=== PATIENT | male | born 1935 | race Caucasian/White ===

== ENCOUNTER 2016-08-13 15:37 | Inpatient (IN) | payer MEDICARE ==
[~2016-08-13] VITALS: Ht 152.4 cm; Wt 71.4 kg
[~2016-08-13 15:37] MED LIST: ALBU8.5H2 INHALATION; ASPI325T32 PO; ATOR80TA77 PO; CALC-846 PO; CLOP75TA28 PO; GUAI600T86 PO; ISOS60TA2 PO; LEVO50TA6 PO; MEMA28CA PO; METO100T3 PO; MULT-1073 PO; NITR0.4T SL; OMEP20CA11 PO; RIVA20TA PO; VANC125C3 PO
--- NOTE | 2016-08-13 17:00 | NUR ---
Direct Admit Pt comes from [facility] with Rt hip fx in 02/03 pain calling out. No pain medication ordered at this time. paged and aware. Other interventions used to help comfort pt. IV Left hand patent and flushed. 2L NC in use but pt will be weaned off. 94% RA. [place] patent and draining to gravity. [place] tinged and small amount of blood sediment. A&OX2 dementia baseline. Not oriented to year or place. Reoriented well. Family in room. GLF down cement steps. Care continues
[2016-08-13 17:46] VITALS: BP 157/84; PULSE 71; RESP 18; O2SAT 95
[2016-08-13] MEDS ORDERED: Polyethylene Glycol (PEG) 17 Gm Powder PO PRN (18:45)
[2016-08-13] MEDS ORDERED: Ondansetron 2 mg/mL 2 mL Inj IVPUSH PRN (18:45)
[2016-08-13] MEDS ORDERED: Alum-Mag Hydrox-Simeth 30 mL Suspension PO PRN (18:45)
[2016-08-13] MEDS: HYDROmorphone 0.5 mg/0.5 mL iSecure Syringe IVPUSH PRN (19:07)
[2016-08-13 19:26] LABS: Mean Corpuscular Hemoglobin 32.1 pg (27.0-35.0); Mean Corpuscular Volume 96.2 fL (81-100)
[2016-08-13 19:36] VITALS: BP 118/71; PULSE 66; RESP 16; O2SAT 91
[2016-08-13 19:44] LABS: INR 1.08 ratio
[2016-08-13 19:49] LABS: TROPONIN T < 0.010 ug/L (0.0-0.011)
--- NOTE | 2016-08-13 20:15 | PCM.HPMED ---
Subjective Date of Service Aug 13, 2016 Primary Provider: Admitting Physician: Martha Dyson DO Primary Care Physician: Marc Barbosa DO Attending Physician: Martha Dyson DO Allergies Coded Allergies: meperidine (Verified Adverse Reaction, Mild, nausea and vomiting, 04/30/15) PMH Social History Hx Alcohol Use: Yes (a shot of soraya nightly) Hx Substance Use: No Hx Tobacco Use: Yes Smoking Status: Former Smoker Exam Vital Signs Vital Sign - Last Date Time Temp Pulse Resp B/P Pulse Ox O2 Delivery O2 Flow Rate FiO2 08/13/16 19:36 36.5 66 16 118/71 91 Room Air 08/13/16 17:46 2.00 Lab and Diagnostics Result Diagram: 08/13/16191408/13/161914 Assessment & Plan HPI: The patient is an 80-year-old gentleman who has dementia and fell down 7-8 flights of concrete steps. The patient was home by himself and does not remember much of what happened. The patient fell down 7-8 concrete steps and then was found by a neighbor who heard him screaming for help. The patient was then brought to the emergency room at [facility] where he was found to have a right intertrochanteric fracture and then transferred here for surgical repair. Patient is a difficult historian due to his dementia some of the history was pieced together by the patient's who discussed what happened with neighbors. Patient currently only complains of right hip pain and denies any chest pain, shortness of breath, nausea, vomiting, diarrhea. Home medications: Atorvastatin 80 mg by mouth daily Clopidogrel 75 mg daily Isosorbide 30 mg daily Levothyroxine 50 g daily Amantadine 20 mg every PM Metoprolol 100 mg by mouth twice a day Multivitamin Nitroglycerin 0.4 mg sublingual every 5 minutes when necessary chest pain Omeprazole 20 mg daily Allergies: Demerol PMHx: [place] 2 Hyperlipidemia Hypertension Dementia SHx: CABG Pacemaker Appendectomy FHx: Multiple family members with heart disease SocHx: Tobacco history: Patient denies Alcohol use: Patient denies Drug use: Patient denies ROS: A complete review of systems was performed or attempted to be performed. Please see HPI for pertinent positives, all other systems are negatives. Physical Exam: GEN: Patient was awake, alert, responding appropriately to questions HEENT: Pupils equal round and reactive to light, extraocular eye muscles intact , Neck soft supple, trachea midline, right parietal lesion secondary to fall Skin: Multiple bruises status post fall CV: +S1/S2, regular rate and rhythm, no murmurs auscultated Respiratory: CTAB, no wheezes, rales, rhonchi GI: +bowel sounds x4, soft, compressible, nontender to palpation EXT: no clubbing, cyanosis, edema Neuro: Cranial nerves II-XII grossly intact Psych: mood and affect were appropriate Assessment and Plan 80-year-old male with right intratrochanteric fracture Right hip fracture -Consult orthopedics (Dr. Joseph) -Continue anticoagulation medications -Pain control with Dilaudid -Nothing by mouth after midnight Hypertension (currently controlled) -Continue metoprolol 100 mg twice a day -Continue isosorbide 30 mg daily -Continue to monitor Hyperlipidemia (currently controlled) -Continue atorvastatin 80 mg daily Dementia -Continue Namenda FEN GI -Follow up labs in the morning -Continue IV fluids -Nothing by mouth after midnight Disposition: Due to the nature of the patient's condition he will say greater than 2 midnights Time spent Greater than 45 minutes Martha Dyson DO Aug 13, 2016 20:15
[2016-08-13] MEDS: 0.9% Sodium Chloride 1,000 ML IV SCH (20:42)
[2016-08-14] VITALS (7 sets, daily range): BP systolic 128–162; BP diastolic 68–83; PULSE 59–81; RESP 15–20; O2SAT 92–96
--- NOTE | 2016-08-14 00:14 | CONS ---
[address] [address] CONSULTATION REPORT PATIENT: MAREK MONTIEL : 1935 MR#: [id number] ADMIT: 08/13/2016 JOB ID: [id number] DATE OF SERVICE: 08/13/2016 CHIEF COMPLAINT: Right hip pain. HISTORY OF PRESENT ILLNESS: The patient is an 80-year-old male who fell down concrete steps injuring his right hip. He states that he normally ambulates without aids, although he is a somewhat poor historian. He states that he lives at home with his . He had onset of severe acute right hip pain after the fall and was unable to ambulate after that time. PAST MEDICAL HISTORY: Significant for myocardial infarction x2, hyperlipidemia, hypertension, dementia. PAST SURGICAL HISTORY: Coronary artery bypass graft, pacemaker, appendectomy. PHYSICAL EXAMINATION: Blood pressure 118/71, pulse rate 66, respirations 16, temperature 36.5. He is alert and cooperative, in some distress secondary to his right hip. His breathing is unlabored. His right hip has pain with any range of motion. The skin overlying the hip is intact. He is able to move his toes. His foot is warm, pink, and well perfused with dorsalis pedis pulse +2. X-rays demonstrate a right displaced femoral neck fracture. ASSESSMENT: Right displaced femoral neck fracture. PLAN: We discussed treatment options, including operative and nonoperative treatment, and he would like to proceed with a right hip hemiarthroplasty tomorrow, although he is somewhat nervous about the procedure. We discussed the risks, benefits and possible complications of surgery, and answered his questions. We will plan for surgery tomorrow. Recommend holding Plavix until postoperatively, and again, plan for surgery tomorrow for a hip hemiarthroplasty.
[2016-08-14] MEDS: HYDROmorphone 0.5 mg/0.5 mL iSecure Syringe IVPUSH PRN ×5 (00:48→21:19)
--- NOTE | 2016-08-14 05:42 | NUR ---
pain/mentation pt has received IV dilaudid 0.5mg twice this shift for complaints of pain in his hip. pt has baseline dementia, he has been oriented to self place and situation this shift, but does not know the date or time. every time pt wakes up he becomes panicked because he does not remember where his is. pt is easily reoriented and calmed by assuring him that his is home and will be back in the morning. he has been NPO since midnight. he has a bed alarm on for safety and hourly rounding being done. care continues.
[2016-08-14 06:00] LABS: APPEARANCE,URINE SLIGHTLY CLOUDY (CLEAR,HAZY); COLOR,URINE YELLOW (YELLOW); OCCULT BLOOD,URINE LARGE (NEGATIVE); PH,URINE 5.5 (5.0-8.0); UROBILINOGEN,URINE NORMAL (NORMAL)
[2016-08-14 06:10] LABS: Mean Corpuscular Volume 95.9 fL (81-100)
[2016-08-14 06:17] LABS: INR 1.12 ratio
[2016-08-14] MEDS: Pantoprazole 40 mg ER24 Tablet PO SCH (06:44)
[2016-08-14] MEDS: 0.9% Sodium Chloride 1,000 ML IV SCH ×2 (06:50→21:27)
[2016-08-14] MEDS: Isosorbide Mononitrate 30 mg ER24 Tablet PO SCH (08:00)
--- NOTE | 2016-08-14 08:56 | NUR ---
BP medications Paged Dr. Perez and per orders to give ," BP medications and hold others." per orders gave ordered BP medications and held Namenda and Vitamins as ordered. patient aware and agrees. Patient has been NPO for surgery.
--- NOTE | 2016-08-14 09:15 | DRSVH ---
PROCEDURE: X-RAY RIGHT HIP COMPLETE, MINIMUM TWO VIEWS ([id number]) INDICATIONS: HIP PAIN TECHNIQUE: 2 views of the hip were acquired. COMPARISON: [facility], CR, XR HIP 2VW LT, 01/03/2015, 11:06. FINDINGS: Bones: Subcapital right femoral neck fracture is present with mild superior lateral displacement of t he distal fracture component. Soft tissues: No suspicious soft tissue calcifications or masses. Vascular calcifications indicate atherosclerosis. IMPRESSION: Superior laterally displaced right subcapital femoral neck fracture. Dictated by: Gustavo JIN Interpreted: Sarah Lowery MD on 08/14/2016 at 9:13 Transcribed by: MAULIK on 08/14/2016 at 9:14 Approved by: Sarah Lowery M.D. on 08/14/2016 at 9:48
--- NOTE | 2016-08-14 10:46 | NUR ---
Right hip pain objective sign and symptoms of pain, moaning and states," pain in my right leg." per pain assessment patient is unable to use pain scale. patient will be going for surgery today. PRN Dilaudid given as ordered. Spouse at bed side. OR aware.
--- NOTE | 2016-08-14 11:41 | NUR ---
Telemetry New orders for Telemetry per Dr. Perez. police service technician aware that patient is on Telemetry.
--- NOTE | 2016-08-14 14:22 | NUR ---
Social Work: initial Assessment Late Entry Data & Assessment: See Initial Assessment. EMR reviewed. Patient is a 80 y/o male who admitted with a right hip fracture per H&P. SW met with patient's , Michelle Paz [phone], to complete initial assessment, SW role explained and discharge planning discussed. Patient has dementia at baseline and was having a bedside procedure completed. Patient's insurance is [employer] [facility] and patient's PCP is Marc De Paz. Patient does not have VA or Intermediate care insurance. patient does not have a re-admit score. Patient lives at home with his in a one story home with six steps to enter. Patient has no SNF history, but has had [facility] in the past. Patient does not drive and has a walker and cane at home. Patient is scheduled for surgery and patient's discharge needs are not known at the current time, but SW provided patient's with a choice list of SNF and HH providers. SW will continue to follow patient to assist with discharge planning needs. SW provided contact information on white board in patient's room. Plan: Patient will either discharge home with HH or to a SNF. SW will continue to follow patient to assist with discharge planning needs. Edna Reynaga LMSW, TIANA Addendum: 08/16/16 at 1436 by EDNA REYNAGA Amended: Links added.
--- NOTE | 2016-08-14 14:30 | NUR ---
Electrocardiogram Echo at bed side.
--- NOTE | 2016-08-14 15:06 | NUR ---
Increased pain PRN Dilaudid given as ordered for increased pain to right hip. patient is unable to use pain scale, states," i do not know." objective sign and symptoms of pain noted to right hip. OR notified r/t pain medication given, OR charge nurse aware. at bed side.
[2016-08-14] MEDS ORDERED: Bupivacaine Liposome 1.3% 20 mL Inj ONE (16:11)
--- NOTE | 2016-08-14 16:17 | NUR ---
To OR patient went to OR and spouse aware. Dr Perez aware.
--- NOTE | 2016-08-14 16:40 | DRSVH ---
[facility] [address] [address] Echocardiogram Report Name: Nasima MONTIEL ate: 08/14/2016 Height: 71 in Hospital Exam Location: [facility] Weight: 154 lb Gender: Male BSA: 1.9 m2 : 1935 Age: 80 yrs BP: 128/73 mmHg Reason For Study: SURGICAL CLEARANCE Ordering Physician: HOSPITALIST [facility] Performed By: Merrick Park Referring Physician: MARCIANO KOROMA Interpretation Summary The left ventricle is normal in size. Left ventricular systolic function is mild to moderately reduced. The ejection fraction is estimated to be 40-45%. LVEF has mildly improved. There is akinesis of the basal and mid inferior. There is severe hypokinesis of the basal inferolateral segment. Assessment of diastolic parameters indicates a relaxation abnormality of the left ventricle, consistent with normal filling pressures. The right ventricle is normal in size, thickness and function. Right ventricular systolic pressure is estimated to be 24 mmHg plus the clinically estimated CVP which cannot be estimated on this exam. Both atria are normal in size. There is mild mitral regurgitation. There is mild aortic regurgitation. Both mitral and aortic regurgitations have not changed since prior study. There is no other significant valvular heart disease. The ascending aorta is at the upper limits of normal in size. Procedure: A two-dimensional transthoracic echocardiogram with color flow and Doppler was performed. The study quality was technically adequate. Comparison is made with the echocardiogram of 01/01/15. The subcostal views were not obtained due to lack of viable window.. The patient was in sinus bradycardia with heart rates between 56-61 bpm during the exam. Left Ventricle: The left ventricle is normal in size. Left ventricular wall thickness is borderline increased. Left ventricular systolic function is mild to moderately reduced. The ejection fraction is estimated to be 40-45%. There is akinesis of the basal and mid inferior. There is severe hypokinesis of the basal inferolateral segment. Assessment of diastolic parameters indicates a relaxation abnormality of the left ventricle, consistent with normal filling pressures. Right Ventricle: The right ventricle is normal in size, thickness and function. Atria: Both atria are normal in size. The interatrial septum is intact with no evidence for an atrial septal defect. Mitral Valve: The mitral valve leaflets are mildly calcified. There is mild mitral regurgitation. Aortic Valve: The aortic valve is trileaflet. The aortic valve opens well. There is mild aortic regurgitation. Tricuspid Valve: The tricuspid valve is normal. There is trace tricuspid regurgitation. Right ventricular systolic pressure is estimated to be 24 mmHg plus the clinically estimated CVP which cannot be estimated on this exam. Pulmonic Valve: The pulmonic valve leaflets are thin and pliable; valve motion is normal. There is a trace or physiologic amount of pulmonic regurgitation. There is no other significant valvular heart disease. Great Vessels: The aortic root is normal size. The ascending aorta is at the upper limits of normal in size. The pulmonary artery is normal size. The inferior vena cava was not visualized. Pericardium/ Pleura There is no pericardial effusion. There is no pleural effusion. MMode/2D Measurements & Calculations LVIDd: 5.4 cm RA long axis: 4.7 cm LVOT diam LVIDs: 4.4 cm LA A2 area: 17.3 cm FS: 19.4 % LA A4 area: 16.7 cm RA area: 13.4 cm Ao root diam EPSS: 0.81 cm LA length (vol): 5.4 cm RA vol: 32.3 ml IVSd: 1.1 cm LA vol: 45.4 ml RA : 17.1 ml/m2 asc Aorta LVPWd: 0.91 cm LA vol index Diam: 3.4 cm : 24.0 ml/m2 EDV(MOD-sp2) LV palacios. diameter/BSA LV sys. diameter/BSA RVD1 (basal) (cm/m^2): 2.9 (cm/m^2): 2.3 : 4.7 cm ESV(MOD-sp2) EF(MOD-sp2) RVD2 (mid) TAPSE: 2.3 cm : 2.9 cm Doppler Measurements & Calculations Ao V2 max: 94.8 cm/secMV E max ebenezer MV E/A: 0.89 TR max ebenezer Ao max P.6 mmHg : 58.3 cm/sec Med Peak E' Ebenezer : 246.6 cm/sec Ao mean P.9 mmHg MV A max ebenezer TR max PG LVOT Max Ebenezer : 65.7 cm/sec E/E' med: 12.6 : 24.3 mmHg : 76.9 cm/sec Lat Peak E' Ebenezer PA V2 max : 63.7 cm/sec YOEL(I,D): 3.0 cm E/E' lat: 5.8 PA mean PG sev ratio: 0.77 E/e' average: 9.2 : 0.91 mmHg MV dec time: 0.17 sec Ao V2 mean LV V1 max PG PA V2 mean : 65.8 cm/sec : 46.5 cm/sec Ao V2 VTI LV V1 VTI: 15.5 cm PA pr(Accel) : 58.8 mmHg YOEL(V,D): 3.2 cm2 YOEL indexed to BSA (cm^2/m^2): 1.6 Reading Physician:PM
--- NOTE | 2016-08-14 17:12 | NUR ---
Back from OR patient came back from OR due to patient is unable to sign consent for surgery. OR called family and awaiting response and patient is back from OR to [facility] until family gives consent.
--- NOTE | 2016-08-14 20:30 | NUR ---
orders Dr. Escamilla visited this RN in person to explain surgery is re-scheduled for AM. Gave orders for general diet until midnight. Orders for NPO after midnight.
--- NOTE | 2016-08-14 21:29 | PCM.PNMED ---
Subjective Date of Service Aug 14, 2016 Subjective Denies dyspnea, abd pain, n/v, chest pain, numbness in lower extremities. Oriented to location. says he is drowsy. States he was experiencing falls at home prior to this. Contacted his magnetic locater Dr. Whitfield who has provided information regarding his ICD. The v[facility], [facility], last interrogation was on and repeat revealed no problems. Last echo was in 2014. Exam Vital Signs Vital Sign - Last Date Time Temp Pulse Resp B/P Pulse Ox O2 Delivery O2 Flow Rate FiO2 08/14/16 07:57 36.9 66 15 128/73 94 Nasal Cannula 1.00 Intake and Output 08/13/16 08/13/16 08/14/16 Cumulative From/Thru 15:00 23:00 07:00 08/13/16 17:41 - 08/14/16 06:47 Intake Total 0 ml 890 ml 890 ml Output Total 200 ml 510 ml 710 ml Balance -200 ml 380 ml 180 ml Intake Oral 0 ml 0 ml 0 ml IV Total 890 ml 890 ml Output Urine Total 200 ml 510 ml 710 ml # Bowel Movements 0 0 Exam General: NAD, laying in bed HEENT: NCAT Eyes: [place] conjunctivae. No ptosis, PERRL Neck: No masses, trachea midline, no thyromegaly negative for JVD Lungs: CTA with normal respiratory effort, no crackles or wheezes CV: RRR, no murmurs/rubs/gallops, normal PMI GI: S oft, non-tender with no hepatosplenomegaly Vascular: 1+ dorsalis pedis Neuro: 1+ patellar reflex in the right extremity but none in the left Skin: Warm and dry. He has Band-Aids and dressings over his elbow and on the right side of his scalp. He has had some abrasions Psych: A&O X3, with appropriate affect Extremities : no swelling. IVs and Medications IV Fluids Normal saline 100 mL/h Medications Reviewed: Medications were reviewed in detail Lab and Diagnostics Result Diagram: 08/14/16 0535 08/14/16 0535 Assessment & Plan HPI: The patient is an 80-year-old gentleman who has dementia and fell down 7-8 flights of concrete steps. The patient was home by himself and does not remember much of what happened. The patient fell down 7-8 concrete steps and then was found by a neighbor who heard him screaming for help. The patient was then brought to the emergency room at [facility] where he was found to have a right intertrochanteric fracture and then transferred here for surgical repair. Patient is a difficult historian due to his dementia some of the history was pieced together by the patient's who discussed what happened with neighbors. Patient currently only complains of right hip pain and denies any chest pain, shortness of breath, nausea, vomiting, diarrhea. Assessment and Plan 80-year-old male with right intratrochanteric fracture Right hip fracture, present on admission -Consult orthopedics (Dr. Joseph) -Continue anticoagulation medications -Pain control with Dilaudid -Nothing by mouth after midnight -- We held all medications except metoprolol and Imdur in the a.m. of surgery -- Called the OR to let Dr. Joseph know about Plavix. -- Call the OR and left a message about patient's pacemaker per anesthesiology: Also obtained the type and model of his pacemaker and provided that to OR -- Ordered an echocardiogram Hypertension (currently controlled) -Continue metoprolol 100 mg twice a day -Continue isosorbide 30 mg daily -Continue to monitor Hyperlipidemia (currently controlled) -Continue atorvastatin 80 mg daily: Held this a.m. Dementia -Continue Namenda: Held this a.m. FEN GI -Follow up labs in the morning -Continue IV fluids -Nothing by mouth after midnight Disposition: Due to the nature of the patient's condition he will say greater than 2 midnights Pain Evaluation: Adequate Pain Control VTE Mechanical Devices: Intermittant Pneumatic CD Resuscitation Status: CPR: Attempt Resuscitation Kathryn Perez DO Aug 14, 2016 09:02
[2016-08-15] VITALS (16 sets, daily range): BP systolic 106–167; BP diastolic 48–100; PULSE 59–93; RESP 10–19; O2SAT 93–98
[2016-08-15] MEDS: HYDROmorphone 0.5 mg/0.5 mL iSecure Syringe IVPUSH PRN ×3 (02:12→09:48)
--- NOTE | 2016-08-15 03:10 | NUR ---
Pain Pt. is confused baseline due to dementia. FELDT scale used and pt. is able to moan when in pain. IV Dilaudid given as needed and as ordered. Will continue to monitor.
[2016-08-15] MEDS: Pantoprazole 40 mg ER24 Tablet PO SCH (05:31)
[2016-08-15 06:41] LABS: Mean Corpuscular Hemoglobin 32.5 pg (27.0-35.0); Mean Corpuscular Volume 96.5 fL (81-100)
[2016-08-15] MEDS: 0.9% Sodium Chloride 1,000 ML IV SCH ×3 (07:37→18:36)
[2016-08-15] MEDS: Isosorbide Mononitrate 30 mg ER24 Tablet PO SCH (07:38)
--- NOTE | 2016-08-15 09:00 | NUR ---
NPO/surgery Paged Dr Perez r/t patient 's mental status with confusion and Dr Perez Aware. per Dr Perez orders held Namenda and Vitamin as ordered, given BP medications as ordered. Blood sugar 105.
--- NOTE | 2016-08-15 12:09 | NUR ---
OR OR called and states," surgery time at 1400." at bed side and aware. Report given to OR nurse.
[2016-08-15] MEDS ORDERED: Propofol 10,000 mCg/mL 20 mL Inj ONE ×2 (12:59→13:26)
[2016-08-15] MEDS ORDERED: Phenylephrine 10,000 mCg/mL Inj ONE (12:59)
[2016-08-15] MEDS ORDERED: EPHEDrine/NS 5 mg/mL 5 mL Syringe ONE ×2 (12:59→13:26)
[2016-08-15] MEDS ORDERED: hydrALAZINE 20 mg/mL Inj ONE (12:59)
[2016-08-15] MEDS ORDERED: fentaNYL-PF 50 mCg/mL 2 mL Inj ONE ×2 (12:59→17:05)
[2016-08-15] MEDS ORDERED: Dexamethasone 4 mg/mL Inj ONE (13:26)
--- NOTE | 2016-08-15 14:38 | NUR ---
To OR patient off to OR approx 1320. Spouse aware.
[2016-08-15] MEDS ORDERED: Bupivacaine Liposome 1.3% 20 mL Inj ONE (14:46)
[2016-08-15] MEDS ORDERED: MetoCLOpramide 5 mg/mL 2 mL Inj IVPUSH PRN (15:40)
[2016-08-15] MEDS ORDERED: Lactated Ringer's 1,000 ML IV SCH (15:40)
[2016-08-15] MEDS ORDERED: Labetalol 5 mg/mL 4 mL Inj IV PRN (15:40)
[2016-08-15] MEDS ORDERED: HYDROmorphone 1 mg/mL Inj IVPUSH PRN (15:40)
[2016-08-15] MEDS ORDERED: Dexamethasone 4 mg/mL Inj IVPUSH PRN (15:40)
[2016-08-15] MEDS ORDERED: EPHEDrine Sulfate 50 mg/mL Inj IVPUSH PRN (15:40)
[2016-08-15] MEDS ORDERED: Phenylephrine 10,000 mCg/mL Inj IVPUSH PRN (15:40)
[2016-08-15] MEDS ORDERED: Atropine 0.4 mg/mL Inj IVPUSH PRN (15:40)
[2016-08-15] MEDS ORDERED: Ondansetron 2 mg/mL 2 mL Inj IVPUSH PRN ×2 (15:40→16:40)
[2016-08-15] MEDS ORDERED: Lactated Ringer's 500 ML IV PRN (15:40)
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
[2016-08-15] MEDS ORDERED: Bupivacaine Liposome 1.3% 20 mL Inj INFILTRATE ONE (16:14)
[2016-08-15] MEDS ORDERED: Bupivacaine 0.5% 50 mL Inj INFILTRATE ONE (16:14)
[2016-08-15] MEDS ORDERED: Sodium Chloride LOK Flush 10 mL Syringe IVFLUSH ONE (16:15)
[2016-08-15] MEDS ORDERED: HYDROmorphone 0.5 mg/0.5 mL iSecure Syringe IVPUSH PRN (16:40)
[2016-08-15] MEDS ORDERED: diphenhydrAMINE 25 mg Capsule PO PRN (16:40)
[2016-08-15] MEDS ORDERED: HYDROcodone-APAP 5-325 mg Tablet PO PRN (16:40)
[2016-08-15] MEDS ORDERED: Acetaminophen IV 1,000 MG in IV Premix 1 EACH IV PRN (16:40)
[2016-08-15] MEDS ORDERED: 0.9% Sodium Chloride 1,000 ML IV ONE ×2 (17:00)
[2016-08-15] MEDS: fentaNYL-PF 50 mCg/mL 2 mL Inj IVPUSH PRN ×2 (17:08→17:13)
--- NOTE | 2016-08-15 17:16 | PCM.ANEP1 ---
Post Anesthesia Phase 1 PACU Phase 1 Assessment Vital Signs Vital Signs Date Time Temp Pulse Resp B/P Pulse Ox O2 Delivery O2 Flow Rate FiO2 08/15/16 17:10 93 18 167/75 97 Simple Mask 8 08/15/16 17:05 87 15 150/100 93 Nasal Cannula 3 08/15/16 17:00 73 13 150/75 97 Simple Mask 8 08/15/16 16:55 36.9 72 13 132/59 98 Simple Mask 8 08/15/16 15:29 Supplement Oxygen 08/15/16 11:10 36.7 62 19 132/69 96 Nasal Cannula 1.00 08/15/16 10:48 Supplement Oxygen Anesthetic Administered: GA, Regional Block Level of Alertness: Sleepy, easy to arouse SIBLEY's with Equal Strength: Yes Pain: No Pain Scale Score: 5 Nausea or Vomiting: No Oxygen Delivery: Simple Mask Lungs: Clear to Auscultation Dermatome Level: Full Sensation Complications: No Zeb Osborn MD Aug 15, 2016 17:16
--- NOTE | 2016-08-15 17:35 | DRSVH ---
PROCEDURE: X-RAY PELVIS W/LAT HIP (RT) ([id number]) INDICATIONS: post op TECHNIQUE: AP pelvis and lateral view of the right hip acquired. COMPARISON: None. FINDINGS: Bones: Patient is status post right hip arthroplasty, with hardware components in expected positions . The hip joint appears congruent. The visualized bony structures appear intact. Soft tissues: Overlying postoperative changes are noted. No suspicious soft tissue densities. IMPRESSION: Expected postsurgical change for right hip arthroplasty. Dictated by: Didi Tenorio MD, PhD on 08/15/2016 at 17:33 Approved by: Didi Tenorio MD, PhD on 08/15/2016 at 17:34
--- NOTE | 2016-08-15 18:02 | NUR ---
Report PACU Report received from PACU nurse r/t recovery. per nurse patient waking up and will be to OSC when fully awake. at bed side and aware.
--- NOTE | 2016-08-15 18:03 | PCM.ADCARE ---
Advance Care Planning Note Purpose of Encounter: To discuss goals of care and CODE STATUS with patient's power of collections attorney, Parties in Attendance: Patient's , Dr. Perez Decisional Capacity: Patient is known to have an history of dementia. The patient's states that in the past expressed this patient to be DNR/DNI, but sometimes he says maybe he should not be resuscitated. She would not consider his decision- making Ability Subjective: Patient's states that patient watches TV most of the time he has dementia. He does go for walks sometimes at the [facility]. She also knows that he has several comorbidities Objective: Patient has dementia, we will make further attempts to monitor to get information on the CODE STATUS from him to see if he is able to make the decision Goals of Care Determinations: Patient remains full code as patient's is unable to determine his CODE STATUS for him Plan: Patient is full code, with myself as his power of collections attorney and additional decision maker CODE STATUS: Full code Time Spent Adv.Care Plannin minutes Adv. Care Plan Documenation: As documented here, also well documented in the progress note Kathryn Perez DO Aug 15, 2016 18:00
--- NOTE | 2016-08-15 18:18 | NUR ---
From PACU patient is back from PACU. Dr. Perez at bed side.
[2016-08-15] MEDS: Senna-Docusate 8.6-50 mg Tablet PO SCH (20:16)
--- NOTE | 2016-08-15 20:17 | OP ---
[address] [address] OPERATIVE REPORT PATIENT: MAREK MONTIEL : 1935 MR#: [id number] ADMIT: 08/13/2016 JOB ID: [id number] DATE OF SURGERY: 08/15/2016 PREOPERATIVE DIAGNOSIS(ES): Right displaced femoral neck fracture. POSTOPERATIVE DIAGNOSIS(ES): Right displaced femoral neck fracture. PROCEDURE: Right hip hemiarthroplasty. SURGEON: Hernandez Escamilla DO HYDROELECT[employer]IC PLANT TECHNICIAN: Uriah Chirinos PA-C INDICATIONS: The patient is an 80-year-old male who fell down concrete steps at his house, sustaining a right femoral neck fracture. He was unable to ambulate after the fall. He was seen at [facility] and transferred to [facility] for definitive orthopedic care. We discussed treatment options with the patient and his and they wished to proceed with a right hip hemiarthroplasty. I discussed the risks, benefits, and possible complications of surgery including, but not limited to injury to nerves and vessels, infection, bleeding, incomplete relief of symptoms, stiffness, need for additional procedures, the fact that he is at elevated risk due to his cardiac condition. The patient and his had good understanding. All questions were answered and they wished to proceed. A surgical supply assistant was required for the successful completion of this procedure. PROCEDURE IN DETAIL: The patient was brought to the operating room. He was given a preoperative antibiotic and general anesthetic. Placed comfortably into the lateral decubitus position. The right hip was sterilely prepped and draped. An incision was made centered over the greater trochanter in line with the femur. Dissection was carefully carried through subcutaneous tissue. Electrocautery was used for hemostasis. A split was then made in the iliotibial band in line with the skin incision and the Charnley retractor was then placed. A split was then made in the gluteus medius between the junction of the anterior 1/3 and posterior 2/3, and Hohmann retractors were placed on either side of the femoral neck. Next an anterior sleeve of tissue was released off of the femur, leaving a cuff of tissue for repair on the trochanter and taken to a point just distal to vastus tubercle. A small triangular portion of capsule was then removed and the fracture was encountered. It was a subcapital fracture and therefore an additional neck cut was performed and the femoral head was then removed. The femoral head was then sized, and we did a trial with 53 mm bipolar fitting quite nicely. All the bony fragments were removed from the acetabulum. The acetabulum was free of any significant degenerative changes. The femur was then prepared beginning with a box osteotome and canal seeker. This was sequentially broached up to a size 8, which had excellent fit and fill. A calcar planer was used to smooth the top of the femur and a trial was then performed with the +1.5, 28 head and a 53 bipolar which fit quite nicely. The wound was irrigated and the DePuy Tri-Lock 8 standard stem was inserted followed by a 28 mm +1.5 head and a 53 bipolar. The hip was reduced. Had excellent range of motion, great stability, equal leg lengths, appropriate shuck. The wound was copiously irrigated and then closed with #5 Ethibond to repair the capsule. Additional #5 to repair the gluteus medius. The remainder of the gluteus medius and vastus lateralis were repaired with #1 Surgilon. The iliotibial band was then repaired with a running #1 Surgilon and 0-Vicryl. The subcu was closed with 2-0 Vicryl. The skin was closed with a running subcuticular 3-0 V-Loc suture. Mixture of dilute Exparel and bupivacaine was added as an adjunct local anesthetic. Sterile dressings were applied. The patient tolerated the procedure well. BLOOD LOSS: 75 cc. POSTOPERATIVE PLAN: Postop per protocol. Have the patient weightbear to tolerance. Use a walker for ambulation. We can resume his Plavix tomorrow and start him on aspirin 325 daily in conjunction with his Plavix for DVT prophylaxis unless the hospitalist service would prefer another mode of DVT prophylaxis.
--- NOTE | 2016-08-15 20:39 | PCM.PNMED ---
Subjective Date of Service Aug 15, 2016 Subjective Patient was seen and examined right after he got back from his orthopedic surgery/right hip hemiarthroplasty. He appears quite groggy as to be expected, moaning but not responding to questions falling back asleep Exam Vital Signs Vital Sign - Last Date Time Temp Pulse Resp B/P Pulse Ox O2 Delivery O2 Flow Rate FiO2 08/15/16 04:56 36.8 74 18 163/73 95 Nasal Cannula 1.00 Intake and Output 08/14/16 08/14/16 08/15/16 Cumulative From/Thru 15:00 23:00 07:00 08/13/16 17:41 - 08/15/16 04:50 Intake Total 972 ml 735 ml 2597 ml Output Total 550 ml 1260 ml Balance 422 ml 735 ml 1337 ml Intake Oral 0 ml 0 ml IV Total 972 ml 735 ml 2597 ml Output Urine Total 550 ml 1260 ml # Bowel Movements 0 Exam General: NAD, laying in bed, drowsy HEENT: Normocephalic, atraumatic Eyes: Closed Neck: No masses, trachea midline, no thyromegaly, negative for JVD Lungs: CTA with normal respiratory effort, no crackles or wheezes CV: RRR, no murmurs/rubs/gallops, normal PMI GI: Soft, non-tender with no hepatosplenomegaly MSK: Normal gait and station, no digital cyanosis Skin: Warm and dry. IVs and Medications Medications Reviewed: Medications were reviewed in detail Lab and Diagnostics Laboratory Tests Test 08/15/16 05:57 White Blood Count 10.2th/mm3 (3.8-10.1) Red Blood Count 4.59mil/mm3 (4.40-5.80) Hemoglobin 14.9g/dL (13.8-17.2) Hematocrit 44.3% (41.0-50.0) Mean Corpuscular Volume 96.5fL (81-100) Mean Corpuscular Hemoglobin 32.5pg (27.0-35.0) Mean Corpuscular Hemoglobin Concent 33.6% (32.0-37.0) Red Cell Distribution Width 13.0% (12.3-15.4) Platelet Count 114bil/L (150-400) Sodium Level 138mEq/L (134-144) Potassium Level 4.8mEq/L (3.5-5.2) Chloride Level 105mEq/L (97-108) Carbon Dioxide Level 19mmol/L (18-29) Blood Urea Nitrogen 20mg/dL (8-27) Creatinine 1.06mg/dL (0.76-1.27) Estimat Glomerular Filtration Rate 71mL/min (>59) Glucose Level 108mg/dL (60-99) Calcium Level 8.9mg/dL (8.5-10.1) Microbiology 08/14/16 Urine Culture - Preliminary, Resulted No growth to date Result Diagram: 08/14/16 0535 08/14/16 0535 Assessment & Plan HPI: The patient is an 80-year-old gentleman who has dementia and fell down 7-8 flights of concrete steps. The patient was home by himself and does not remember much of what happened. The patient fell down 7-8 concrete steps and then was found by a neighbor who heard him screaming for help. The patient was then brought to the emergency room at [facility] where he was found to have a right intertrochanteric fracture and then transferred here for surgical repair. Patient is a difficult historian due to his dementia some of the history was pieced together by the patient's who discussed what happened with neighbors. Patient currently only complains of right hip pain and denies any chest pain, shortness of breath, nausea, vomiting, diarrhea. Assessment and Plan 80-year-old male with right intratrochanteric fracture after fall Right hip fracture, present on admission -Consult orthopedics (Dr. Joseph): Right hemiarthroplasty performed today, was not done yesterday due to inability to obtain consent from . -Continue anticoagulation medications tomorrow a.m. -Pain control with Dilaudid -Nothing by mouth after midnight -- We held all medications except metoprolol and Imdur in the a.m. of surgery -- Called the OR to let Dr. Joseph know about Plavix. -- Call the OR and left a message about patient's pacemaker per anesthesiology: Also obtained the type and model of his pacemaker and provided that to OR -- Ordered an echocardiogram: "The left ventricle is normal in size. Left ventricular systolic function is mild to moderately reduced. The ejection fraction is estimated to be 40-45%. LVEF has mildly improved. There is akinesis of the basal and mid inferior. There is severe hypokinesis of the basal inferolateral segment. Assessment of diastolic parameters indicates a relaxation abnormality of the left ventricle, consistent with normal filling pressures.The ascending aorta is at the upper limits of normal in size." Hypertension (currently controlled) -Continue metoprolol 100 mg twice a day -Continue isosorbide 30 mg daily -Continue to monitor Hyperlipidemia (currently controlled) -Continue atorvastatin 80 mg daily: Held this a.m. Will restart tomorrow Dementia -Continue Namenda: Held this a.m. Will restart tomorrow FEN GI -Follow up labs in the morning -Continue IV fluids Disposition: Due to the nature of the patient's condition he will say greater than 2 midnights CODE STATUS: Full code POA: VTE Mechanical Devices: Intermittant Pneumatic CD Resuscitation Status: CPR: Attempt Resuscitation Kathryn Perez DO Aug 15, 2016 05:55
[2016-08-16] VITALS (10 sets, daily range): BP systolic 108–146; BP diastolic 61–81; PULSE 66–80; RESP 16–20; O2SAT 94–98
[2016-08-16] MEDS: Sodium Chloride LOK Flush 10 mL Syringe IV SCH ×4 (00:30→21:31)
[2016-08-16] MEDS: 0.9% Sodium Chloride 1,000 ML IV SCH (04:34)
[2016-08-16] MEDS: Pantoprazole 40 mg ER24 Tablet PO SCH (06:03)
[2016-08-16 06:23] LABS: BASOPHILS % (AUTO) 0.2 % (0-3); EOSINOPHILS % (AUTO) 0.2 % (0-5); MONOCYTES % (AUTO) 10.9 % (4-12); Mean Corpuscular Hemoglobin 32.4 pg (27.0-35.0); Mean Corpuscular Volume 98.3 fL (81-100); NEUTROPHILS % (AUTO) 78.1 % (40-74); Platelet Count 73 bil/L (150-400)
[2016-08-16] MEDS: Senna-Docusate 8.6-50 mg Tablet PO SCH ×2 (08:30→21:29)
[2016-08-16] MEDS: Isosorbide Mononitrate 30 mg ER24 Tablet PO SCH (11:02)
--- NOTE | 2016-08-16 12:26 | NUR ---
Evaluation completed. Please go to "Notes" then click on "Assessments and Notes" (bottom left corner of screen). Then select appropriate discipline tab on top of screen.
[2016-08-16] MEDS: 0.9% Sodium Chloride 250 ML IV SCH (12:46)
--- NOTE | 2016-08-16 13:36 | NUR ---
Mentation/Blood/Activity Patient up with PT this am. Stood at bedside with FWW. Order for 1 unit to transfuse in progress at this time. Pt VSS, tolerating well. Addendum: 08/16/16 at 1339 by REGGIE REDDING RN Patient becomes confused and angry easily if not fully understanding plan of care and staff in and out of room. Needs clear, loud explanation for LARSEN BAY and baseline dementia.
--- NOTE | 2016-08-16 13:38 | NUR ---
JAZMÍN signed by JOSE J Olea
--- NOTE | 2016-08-16 14:42 | NUR ---
Social Work: Continued Discharge Planning Data and Assessment: EMR reviewed. Pt is on day 3 of hospitalization admitted for right hip fracture per H&P. Pt has dementia at baseline and lives at home with . SW met with pt and to further discuss discharge planning. PT recommended SNF at time of discharge. SW provided SNF choice list to pt's . requested referral to [facility]. SW contacted [facility] for referral. SNF paperwork in chart. Insurance authorization. will need to be obtained. SW will continue to follow. Plan: Referral has been sent to [facility]. SNF paperwork in chart. Insurance authorization. will need to be obtained. SW will continue to follow. JOSE J Olea
--- NOTE | 2016-08-16 14:55 | NUR ---
SNF choice list provided. JOSE J Sunshine
[2016-08-16] MEDS: Phenazopyridine 97.5 mg Tablet PO SCH ×2 (15:04→21:30)
--- NOTE | 2016-08-16 16:10 | PCM.PNORTH ---
Subjective Date of Service: Aug 16, 2016 Visit Information: Reason for Visit Right Hip Fracture Surgery/Surgery Date Right hip hemiarthroplasty / 08/15/2016 Post-Op Day # 1 Date of Admission: Aug 13, 2016 at 17:14 Hospital Day # Postop General: No Complaints, No Shortness of Breath, No Chest Pain Pain Management: PO, IV Push Objective Exam Objective Patient is seen sitting up in bed with at bedside Vital Signs and I/O Vital Sign - Last Date Time Temp Pulse Resp B/P Pulse Ox O2 Delivery O2 Flow Rate FiO2 08/16/16 15:15 37.1 72 16 125/73 08/16/16 14:11 95 Nasal Cannula 1.50 Intake and Output 08/15/16 08/15/16 08/16/16 Cumulative From/Thru 15:00 23:00 07:00 08/13/16 17:41 - 08/16/16 06:07 Intake Total 1814 ml 300 ml 1307 ml 6018 ml Output Total 230 ml 760 ml 2890 ml Balance 1814 ml 70 ml 547 ml 3128 ml Intake Oral 0 ml 100 ml 100 ml IV Total 1814 ml 300 ml 1207 ml 5918 ml Output Urine Total 230 ml 760 ml 2890 ml # Bowel Movements 0 0 Lab & Micro Results Laboratory Tests Test 08/16/16 05:35 08/16/16 08:20 White Blood Count 6.2th/mm3 (3.8-10.1) Red Blood Count 2.38mil/mm3 (4.40-5.80) Hemoglobin 7.7g/dL (13.8-17.2) Hematocrit 23.4% (41.0-50.0) Mean Corpuscular Volume 98.3fL (81-100) Mean Corpuscular Hemoglobin 32.4pg (27.0-35.0) Mean Corpuscular Hemoglobin Concent 32.9% (32.0-37.0) Red Cell Distribution Width 12.4% (12.3-15.4) Platelet Count 73bil/L (150-400) Neutrophils (%) (Auto) 78.1% (40-74) Lymphocytes (%) (Auto) 10.4% (14-46) Monocytes (%) (Auto) 10.9% (4-12) Eosinophils (%) (Auto) 0.2% (0-5) Basophils (%) (Auto) 0.2% (0-3) Sodium Level 135mEq/L (134-144) Potassium Level 4.1mEq/L (3.5-5.2) Chloride Level 104mEq/L (97-108) Carbon Dioxide Level 16mmol/L (18-29) Blood Urea Nitrogen 22mg/dL (8-27) Creatinine 1.04mg/dL (0.76-1.27) Estimat Glomerular Filtration Rate 73mL/min (>59) Glucose Level 149mg/dL (60-99) Calcium Level 7.9mg/dL (8.5-10.1) Microbiology 08/14/16 Urine Culture - Final, Complete No growth (<1,000 organisms/mL) Result Diagram: 08/16/16 0535 08/16/16 0820 General Appearance: Alert, Oriented X3, Cooperative, No Acute Distress Extremities: Distal Pulses Palpable, No Compartment Syndrom Noted, Thigh & Calf Soft/Nontender Postop Sensory Motor: Distal Motor Intact, NVI Distally SURGICAL WOUND : Wound Location/Description Lateral right hip: dressing clean, dry and intact Activity: Ambulate with PT Catheters: Urethral 2 Way Page Assessment & Plan Impression s/p right hip hemiarthroplasty post operative anemia thrombocytopenia Problems: Plan Weight bearing as tolerated with walker PT for transfers, progressive ambulation, therapeutic exercise DC page today DC abduction pillow DVT prophylaxis: resume Plavix. & aspirin 325 mg QD, SCD's, thigh high MAXX hose Low platelets could lead to increased bleeding at the surgical site and increase the risk of hematoma and infection. Will continue to monitor. Place a regular pillow between the legs when in bed Discharge plan: SNF in 1-2 days or when medically stable Follow up at [facility] ([facility] in 2 weeks with ALONZO for wound check, and at [address] Arana, with xrays Pain Management: Dilaudid IV, [place] VTE Prophylaxis: Other (Plavix, aspirin) Resuscitation Status: CPR: Attempt Resuscitation Dunn LoringAshley manuel PA-C Aug 16, 2016 16:09
[2016-08-16 17:33] LABS: BASOPHILS % (AUTO) 0.2 % (0-3); EOSINOPHILS % (AUTO) 0.8 % (0-5); MONOCYTES % (AUTO) 16.3 % (4-12); Mean Corpuscular Hemoglobin 31.5 pg (27.0-35.0); Mean Corpuscular Volume 94.3 fL (81-100); NEUTROPHILS % (AUTO) 70.2 % (40-74); Platelet Count 127 bil/L (150-400)
--- NOTE | 2016-08-16 21:00 | PCM.PNMED ---
Subjective Date of Service Aug 16, 2016 Subjective Patient is seen and examined. He says his pain is under control. Exam Vital Signs Vital Sign - Last Date Time Temp Pulse Resp B/P Pulse Ox O2 Delivery O2 Flow Rate FiO2 08/16/16 04:44 36.6 67 18 146/81 96 Nasal Cannula 3.00 Intake and Output 08/15/16 08/15/16 08/16/16 Cumulative From/Thru 15:00 23:00 07:00 08/13/16 17:41 - 08/15/16 19:22 Intake Total 1814 ml 300 ml 4711 ml Output Total 230 ml 2130 ml Balance 1814 ml 70 ml 2581 ml Intake Oral 0 ml 0 ml IV Total 1814 ml 300 ml 4711 ml Output Urine Total 230 ml 2130 ml # Bowel Movements 0 Exam General: NAD, laying in bed HEENT: NCAT, poor dentition Eyes: [place] conjunctivae. No ptosis, PERRL Neck: No masses, trachea midline, no thyromegaly, slight right-sided JVD Lungs: CTA with normal respiratory effort, no crackles or wheezes CV: RRR, no murmurs/rubs/gallops, normal PMI GI: Soft, non-tender with no hepatosplenomegaly Psych: A&O X3, with appropriate affect Neuro: No focal deficits Skin: His bruises over his right scalp and right elbow look well-healed without infection MSK: He is moving his lower extremities well feet are warm to touch, Vascular: dorsalis pedis is palpable on the unaffected side left side Extremities: Negative for lower extremity edema IVs and Medications Medications Reviewed: Medications were reviewed in detail Lab and Diagnostics Result Diagram: 08/15/16 0557 08/15/16 0557 Assessment & Plan HPI: The patient is an 80-year-old gentleman who has dementia and fell down 7-8 flights of concrete steps. The patient was home by himself and does not remember much of what happened. The patient fell down 7-8 concrete steps and then was found by a neighbor who heard him screaming for help. The patient was then brought to the emergency room at [facility] where he was found to have a right intertrochanteric fracture and then transferred here for surgical repair. Patient is a difficult historian due to his dementia some of the history was pieced together by the patient's who discussed what happened with neighbors. Patient currently only complains of right hip pain and denies any chest pain, shortness of breath, nausea, vomiting, diarrhea. Assessment and Plan 80-year-old male with right intratrochanteric fracture after fall Right hip fracture, present on admission -Consult orthopedics (Dr. Joseph): Right hemiarthroplasty performed today, was not done yesterday due to inability to obtain consent from . -Continue anticoagulation medications tomorrow a.m. -Pain control with Dilaudid -Nothing by mouth after midnight -- We held all medications except metoprolol and Imdur in the a.m. of surgery -- Called the OR to let Dr. Joseph know about Plavix. -- Call the OR and left a message about patient's pacemaker per anesthesiology: Also obtained the type and model of his pacemaker and provided that to OR -- Ordered an echocardiogram: "The left ventricle is normal in size. Left ventricular systolic function is mild to moderately reduced. The ejection fraction is estimated to be 40-45%. LVEF has mildly improved. There is akinesis of the basal and mid inferior. There is severe hypokinesis of the basal inferolateral segment. Assessment of diastolic parameters indicates a relaxation abnormality of the left ventricle, consistent with normal filling pressures.The ascending aorta is at the upper limits of normal in size." Stopped fluids -- Discontinued aspirin platelet due to concern for low platelets this a.m. and 75, follow-up CBC after the transfusion Anemia due to bleeding secondary to inherent risk involved with orthopedic surgery, acute -- Hemoglobin 7.5 this a.m. -- Patient received 1 unit of PRBC -- Posttransfusion H&H pending at 17 00 Hypertension (currently controlled) -Continue metoprolol 100 mg twice a day -Continue isosorbide 30 mg daily -Continue to monitor Hyperlipidemia (currently controlled) -Continue atorvastatin 80 mg daily: Held this a.m. Will restart tomorrow Dementia -Continue Namenda: Held this a.m. Will restart tomorrow FEN GI -Follow up labs in the morning -Continue IV fluids Disposition: Due to the nature of the patient's condition he will say greater than 2 midnights CODE STATUS: Full code POA: Pain Evaluation: Adequate Pain Control VTE Mechanical Devices: Intermittant Pneumatic CD Resuscitation Status: CPR: Attempt Resuscitation Kathryn Perez DO Aug 16, 2016 05:40
--- NOTE | 2016-08-16 23:01 | NUR ---
Page Pt. discontinued page catheter by self. Penile area swollen and red. Pericare provided.
[2016-08-17 06:02] VITALS: BP 141/61; PULSE 74; RESP 16; O2SAT 96
[2016-08-17] MEDS: Pantoprazole 40 mg ER24 Tablet PO SCH (06:07)
[2016-08-17 06:55] LABS: BASOPHILS % (AUTO) 0.3 % (0-3); EOSINOPHILS % (AUTO) 3.3 % (0-5); MONOCYTES % (AUTO) 14.6 % (4-12); Mean Corpuscular Hemoglobin 31.6 pg (27.0-35.0); Mean Corpuscular Volume 93.4 fL (81-100); NEUTROPHILS % (AUTO) 66.3 % (40-74); Platelet Count 139 bil/L (150-400)
[2016-08-17] MEDS: 0.9% Sodium Chloride 1,000 ML IV SCH ×2 (08:15→17:21)
[2016-08-17] MEDS: Senna-Docusate 8.6-50 mg Tablet PO SCH ×2 (08:20→20:30)
[2016-08-17] MEDS: Isosorbide Mononitrate 30 mg ER24 Tablet PO SCH (08:20)
[2016-08-17] MEDS: Sodium Chloride LOK Flush 10 mL Syringe IV SCH ×2 (08:20→16:26)
[2016-08-17] MEDS: 0.9% Sodium Chloride 250 ML IV SCH (09:05)
[2016-08-17] MEDS: Phenazopyridine 97.5 mg Tablet PO SCH ×3 (10:41→21:32)
--- NOTE | 2016-08-17 11:50 | NUR ---
[facility] Todd has accepted with Dr. Gutierrez to follow. Authorization required from [facility] prior to d/c.
[2016-08-17 13:28] VITALS: BP 122/64; PULSE 70; RESP 15; O2SAT 94
--- NOTE | 2016-08-17 15:50 | PCM.PNORTH ---
Subjective Date of Service: Aug 17, 2016 Visit Information: Reason for Visit Right Hip Fracture Surgery/Surgery Date right hip hemiarthroplasty 08/15/2016 Post-Op Day # 2 Date of Admission: Aug 13, 2016 at 17:14 Hospital Day # Subjective Patient had low platelet count yesterday was transfused 1 unit of blood. Today platelets are up to 139. Last night the patient self removed his Briones catheter. There was some bloody drainage at the regional meatus of that is improving according to the nurses. Patient has resumed Plavix and aspirin. Plan is for discharge to [facility]. The patient has some nausea this morning which was relieved with Zofran. He has not used any narcotics today. Postop General: No Complaints, No Shortness of Breath, No Chest Pain Pain Management: PO, IV Push Objective Exam Objective Patient is seen lying in bed. Vital Signs and I/O Vital Sign - Last Date Time Temp Pulse Resp B/P Pulse Ox O2 Delivery O2 Flow Rate FiO2 08/17/16 13:28 36.4 70 15 122/64 94 Room Air 08/16/16 14:11 1.50 Intake and Output 08/16/16 08/16/16 08/17/16 Cumulative From/Thru 15:00 23:00 07:00 08/13/16 17:41 - 08/17/16 06:02 Intake Total 1867 ml 250 ml 8135 ml Output Total 400 ml 850 ml 4140 ml Balance 1467 ml -600 ml 3995 ml Intake Oral 861 ml 250 ml 1211 ml IV Total 706 ml 6624 ml Packed Cells 300 ml 300 ml Output Urine Total 400 ml 850 ml 4140 ml # Bowel Movements 0 0 0 Lab & Micro Results Laboratory Tests Test 08/16/16 17:08 08/17/16 06:00 White Blood Count 12.5th/mm3 (3.8-10.1) 13.7th/mm3 (3.8-10.1) Red Blood Count 4.03mil/mm3 (4.40-5.80) 3.95mil/mm3 (4.40-5.80) Hemoglobin 12.7g/dL (13.8-17.2) 12.5g/dL (13.8-17.2) Hematocrit 38.0% (41.0-50.0) 36.9% (41.0-50.0) Mean Corpuscular Volume 94.3fL (81-100) 93.4fL (81-100) Mean Corpuscular Hemoglobin 31.5pg (27.0-35.0) 31.6pg (27.0-35.0) Mean Corpuscular Hemoglobin Concent 33.4% (32.0-37.0) 33.9% (32.0-37.0) Red Cell Distribution Width 14.9% (12.3-15.4) 15.0% (12.3-15.4) Platelet Count 127bil/L (150-400) 139bil/L (150-400) Neutrophils (%) (Auto) 70.2% (40-74) 66.3% (40-74) Lymphocytes (%) (Auto) 12.3% (14-46) 15.2% (14-46) Monocytes (%) (Auto) 16.3% (4-12) 14.6% (4-12) Eosinophils (%) (Auto) 0.8% (0-5) 3.3% (0-5) Basophils (%) (Auto) 0.2% (0-3) 0.3% (0-3) Hemoglobin A1c 5.6% (4.8-5.6) Sodium Level 138mEq/L (134-144) Potassium Level 4.1mEq/L (3.5-5.2) Chloride Level 107mEq/L (97-108) Carbon Dioxide Level 18mmol/L (18-29) Blood Urea Nitrogen 32mg/dL (8-27) Creatinine 1.17mg/dL (0.76-1.27) Estimat Glomerular Filtration Rate 63mL/min (>59) Glucose Level 116mg/dL (60-99) Calcium Level 8.3mg/dL (8.5-10.1) Microbiology 08/14/16 Urine Culture - Final, Complete No growth (<1,000 organisms/mL) Result Diagram: 08/17/16 0600 08/17/16 0600 General Appearance: Alert, Oriented X3, Cooperative, No Acute Distress Extremities: Distal Pulses Palpable, Tenderness/Swelling Noted (the right hip, as expected), Other (moderate ecchymosis) Postop Sensory Motor: Distal Motor Intact, NVI Distally SURGICAL WOUND : Wound Location/Description Lateral right hip: Surgical dressing is removed. The wound was cleansed with hydrogen peroxide. Steri-Strips are intact. There was minimal serous drainage on the bandage. No erythema present. A new [place] dressing was applied. Activity: Ambulate with PT Catheters: None Assessment & Plan Impression POD #2 status post right hip hemiarthroplasty Problems: Plan Weightbearing: Weightbearing as tolerated with walker DVT prophylaxis: Resume Plavix, add aspirin 325 mg once a day 6 weeks Physical therapy for transfers, progressive ambulation, therapeutic exercise. Patient is progressing very slowly with physical therapy. He has not yet ambulated. He has been on his feet at bedside with therapy. Wound care: Dressing changed today by ALONZO to [place] Dressing On Thursday, the patient may shower if the wound has no drainage present. Wound may be uncovered to shower. Let soap and water run over the wound, pat dry and apply a new dressing. Discharge plan: Discharge to SNF when medically stable Follow-up plan: In 2 weeks at [facility] with ALONZO for wound check and at [address] Escamilla with x-rays Pain Management: [place] and Dilaudid are ordered but had not been used today VTE Prophylaxis: Other (Plavix, aspirin) Resuscitation Status: CPR: Attempt Resuscitation [place]ley Benedict PA-C Aug 17, 2016 15:50
--- NOTE | 2016-08-17 17:43 | NUR ---
restlessness/confusion patient alert to self and occasionally place. occasional restlessness--pulling and bedding and wedge pillow. patient's restlessness improves after position changes and toileting. patient has denied pain in right hip throughout day, except with significant position changes. patient had 1 large soft brown BM today. requiring 2 person stand and pivot assist to BSC. patient has been cooperative and reorients well. frequent position changes Q2hrs turns and assisting with urinal. continue to monitor.
[2016-08-17 20:25] VITALS: BP 118/64; PULSE 75; RESP 18; O2SAT 93
--- NOTE | 2016-08-17 21:35 | PCM.PNMED ---
Subjective Date of Service Aug 17, 2016 Subjective Last night the patient self removed his Briones catheter. There was some bloody drainage at the regional meatus of that is improving according to the nurses. Plan is for discharge to [facility]. The patient has some nausea this morning which was relieved with Zofran. States he has no appetite today. He has not been able to work with PT OT much. States his pain is under control, denies shortness of breath. Exam Vital Signs Vital Sign - Last Date Time Temp Pulse Resp B/P Pulse Ox O2 Delivery O2 Flow Rate FiO2 08/17/16 00:31 Supplement Oxygen 08/16/16 20:38 36.6 72 18 134/74 94 08/16/16 14:11 1.50 Intake and Output 08/16/16 08/16/16 08/17/16 Cumulative From/Thru 15:00 23:00 07:00 08/13/16 17:41 - 08/16/16 19:30 Intake Total 1867 ml 7885 ml Output Total 400 ml 3290 ml Balance 1467 ml 4595 ml Intake Oral 861 ml 961 ml IV Total 706 ml 6624 ml Packed Cells 300 ml 300 ml Output Urine Total 400 ml 3290 ml # Bowel Movements 0 0 Exam General: NAD, laying in bed HEENT: NCAT, poor dentition Eyes: [place] conjunctivae. No ptosis, PERRL Neck: No masses, trachea midline, no thyromegaly, slight right-sided JVD Lungs: CTA with normal respiratory effort, no crackles or wheezes CV: RRR, no murmurs/rubs/gallops, normal PMI GI: Soft, non-tender with no hepatosplenomegaly Psych: A&O X3, with appropriate affect Neuro: No focal deficits Skin: His bruises over his right scalp and right elbow look well-healed without infection MSK: He is moving his lower extremities well feet are warm to touch, Vascular: dorsalis pedis is palpable on the unaffected side left side Extremities: Negative for lower extremity edema IVs and Medications IV Fluids Started him on normal saline 100 mL per hour based on his labs today Medications Reviewed: Medications were reviewed in detail Lab and Diagnostics Laboratory Tests Test 08/17/16 06:00 White Blood Count 13.7th/mm3 (3.8-10.1) Red Blood Count 3.95mil/mm3 (4.40-5.80) Hemoglobin 12.5g/dL (13.8-17.2) Hematocrit 36.9% (41.0-50.0) Mean Corpuscular Volume 93.4fL (81-100) Mean Corpuscular Hemoglobin 31.6pg (27.0-35.0) Mean Corpuscular Hemoglobin Concent 33.9% (32.0-37.0) Red Cell Distribution Width 15.0% (12.3-15.4) Platelet Count 139bil/L (150-400) Neutrophils (%) (Auto) 66.3% (40-74) Lymphocytes (%) (Auto) 15.2% (14-46) Monocytes (%) (Auto) 14.6% (4-12) Eosinophils (%) (Auto) 3.3% (0-5) Basophils (%) (Auto) 0.3% (0-3) Sodium Level 138mEq/L (134-144) Potassium Level 4.1mEq/L (3.5-5.2) Chloride Level 107mEq/L (97-108) Carbon Dioxide Level 18mmol/L (18-29) Blood Urea Nitrogen 32mg/dL (8-27) Creatinine 1.17mg/dL (0.76-1.27) Estimat Glomerular Filtration Rate 63mL/min (>59) Glucose Level 116mg/dL (60-99) Calcium Level 8.3mg/dL (8.5-10.1) Microbiology 08/14/16 Urine Culture - Final, Complete No growth (<1,000 organisms/mL) Result Diagram: 08/16/16 1708 08/16/16 0820 Assessment & Plan HPI: The patient is an 80-year-old gentleman who has dementia and fell down 7-8 flights of concrete steps. The patient was home by himself and does not remember much of what happened. The patient fell down 7-8 concrete steps and then was found by a neighbor who heard him screaming for help. The patient was then brought to the emergency room at [facility] where he was found to have a right intertrochanteric fracture and then transferred here for surgical repair. Patient is a difficult historian due to his dementia some of the history was pieced together by the patient's who discussed what happened with neighbors. Patient currently only complains of right hip pain and denies any chest pain, shortness of breath, nausea, vomiting, diarrhea. Assessment and Plan 80-year-old male with right intratrochanteric fracture after fall Right hip fracture, present on admission -Consult orthopedics (Dr. Joseph): Right hemiarthroplasty performed day before yesterday, today is postop day 2 -Pain control with Dilaudid -- We held all medications except metoprolol and Imdur in the a.m. of surgery -- Called the OR to let Dr. Arana know about Plavix. -- Call the OR and left a message about patient's pacemaker per anesthesiology: Also obtained the type and model of his pacemaker and provided that to OR -- Ordered an echocardiogram: "The left ventricle is normal in size. Left ventricular systolic function is mild to moderately reduced. The ejection fraction is estimated to be 40-45%. LVEF has mildly improved. There is akinesis of the basal and mid inferior. There is severe hypokinesis of the basal inferolateral segment. Assessment of diastolic parameters indicates a relaxation abnormality of the left ventricle, consistent with normal filling pressures.The ascending aorta is at the upper limits of normal in size." -- Patient's platelets are improved today. Restarted aspirin and Plavix. Ortho wants him on 325 of aspirin daily -- Tomorrow the patient is postop day #3. -- Patient has not been able to participate in physical therapy to much, expected to go to [facility] for recovery -- Platelets are much improved, we started patient on aspirin and Plavix Anemia due to bleeding secondary to inherent risk involved with orthopedic surgery, acute -- Hemoglobin 7.5 08/16 a.m. -- Patient received 1 unit of PRBC -- Posttransfusion H&H is normal -- Continue to monitor Hypertension (currently controlled) -Continue metoprolol 100 mg twice a day -Continue isosorbide 30 mg daily -Continue to monitor Hyperlipidemia (currently controlled) -Continue atorvastatin 80 mg daily: restarted Dementia -Continue Namenda: Held this a.m. restarted FEN GI -Follow up labs in the morning -Continue IV fluids Disposition: Due to the nature of the patient's condition he will say greater than 2 midnights. He is expected to be discharged to [facility] for physical therapy CODE STATUS: Full code POA: Pain Evaluation: Adequate Pain Control VTE Prophylaxis: Other (Plavix, aspirin) VTE Mechanical Devices: Intermittant Pneumatic CD Resuscitation Status: CPR: Attempt Resuscitation Kathryn Perez DO Aug 17, 2016 05:41
[2016-08-18] MEDS: Sodium Chloride LOK Flush 10 mL Syringe IV SCH ×2 (00:30→08:07)
--- NOTE | 2016-08-18 01:25 | NUR ---
Urine Patient Alert to self only. Patient is noncompliant with call light and yells out for help instead. Instructions and orientation to call light were given multiple times. Patient has been urinating frequently, about 100-150ml about every 1/2 hr to 1 hr. Urine is pinkish orange. Patient disoriented but is easily redirected once staff enters room. Vitals stable. Call light within reach.
[2016-08-18] MEDS: 0.9% Sodium Chloride 1,000 ML IV SCH ×2 (02:31→12:24)
[2016-08-18] MEDS ORDERED: HYDR-4003 PO ×2 (05:44→15:15)
[2016-08-18] MEDS ORDERED: ASPI325T32 PO (05:44)
[2016-08-18] MEDS ORDERED: DOCU-41 PO (05:44)
[2016-08-18] MEDS ORDERED: POLY17PO6 PO (05:44)
[2016-08-18 06:03] LABS: Mean Corpuscular Hemoglobin 31.8 pg (27.0-35.0); Mean Corpuscular Volume 92.6 fL (81-100)
[2016-08-18] MEDS: Pantoprazole 40 mg ER24 Tablet PO SCH (06:24)
[2016-08-18 06:26] VITALS: BP 121/71; PULSE 78; RESP 16; O2SAT 94
[2016-08-18] MEDS: Phenazopyridine 97.5 mg Tablet PO SCH ×2 (08:06→14:23)
[2016-08-18] MEDS: Isosorbide Mononitrate 30 mg ER24 Tablet PO SCH (08:07)
[2016-08-18] MEDS: Senna-Docusate 8.6-50 mg Tablet PO SCH (08:07)
--- NOTE | 2016-08-18 08:55 | PCM.PNORTH ---
Subjective Date of Service: Aug 18, 2016 Visit Information: Reason for Visit Right Hip Fracture Surgery/Surgery Date right hip hemiarthroplasty 08/14/2016 Post-Op Day # 3 Date of Admission: Aug 13, 2016 at 17:14 Hospital Day # Subjective The patient had confusion during the night. He has urinary frequency since removing the catheter himself yesterday. He did not take any narcotics yesterday. Postop General: No Complaints, No Shortness of Breath, No Chest Pain Pain Management: PO, IV Push Objective Exam Objective Patient is sitting up in bed with at bedside. He does not respond to verbal questioning. He does seem to respond to his name. He does not answer any of my questions. Vital Signs and I/O Vital Sign - Last Date Time Temp Pulse Resp B/P Pulse Ox O2 Delivery O2 Flow Rate FiO2 08/18/16 06:26 36.9 78 16 121/71 94 Room Air 08/16/16 14:11 1.50 Intake and Output 08/17/16 08/17/16 08/18/16 Cumulative From/Thru 14:59 22:59 06:59 08/13/16 17:41 - 08/18/16 06:26 Intake Total 1384 ml 350 ml 9869 ml Output Total 950 ml 1200 ml 6290 ml Balance 434 ml -850 ml 3579 ml Intake Oral 500 ml 350 ml 2061 ml IV Total 884 ml 7508 ml Packed Cells 300 ml Output Urine Total 950 ml 1200 ml 6290 ml # Voids 6 6 # Bowel Movements 1 0 1 Lab & Micro Results Laboratory Tests Test 08/18/16 05:30 White Blood Count 11.1th/mm3 (3.8-10.1) Red Blood Count 4.21mil/mm3 (4.40-5.80) Hemoglobin 13.4g/dL (13.8-17.2) Hematocrit 39.0% (41.0-50.0) Mean Corpuscular Volume 92.6fL (81-100) Mean Corpuscular Hemoglobin 31.8pg (27.0-35.0) Mean Corpuscular Hemoglobin Concent 34.4% (32.0-37.0) Red Cell Distribution Width 14.9% (12.3-15.4) Platelet Count 148bil/L (150-400) Sodium Level 136mEq/L (134-144) Potassium Level 4.0mEq/L (3.5-5.2) Chloride Level 104mEq/L (97-108) Carbon Dioxide Level 17mmol/L (18-29) Blood Urea Nitrogen 25mg/dL (8-27) Creatinine 1.12mg/dL (0.76-1.27) Estimat Glomerular Filtration Rate 67mL/min (>59) Glucose Level 111mg/dL (60-99) Calcium Level 8.2mg/dL (8.5-10.1) Microbiology 08/14/16 Urine Culture - Final, Complete No growth (<1,000 organisms/mL) Result Diagram: 08/18/16 0530 08/18/16 0530 Extremities: Distal Pulses Palpable, No Compartment Syndrom Noted, Thigh & Calf Soft/Nontender Postop Sensory Motor: Distal Motor Intact, NVI Distally SURGICAL WOUND : Wound Location/Description Dressing is clean dry and intact Activity: Ambulate with PT Catheters: None Assessment & Plan Impression POD #3 status post right hip hemiarthroplasty Problems: Plan Weightbearing: Weightbearing as tolerated with walker DVT prophylaxis: Resume Plavix, add aspirin 325 mg once a day 6 weeks Physical therapy for transfers, progressive ambulation, therapeutic exercise. Patient is progressing very slowly with physical therapy. . Wound care: Nursing, please change dressing prior to discharge Apply thigh high MAXX hose today Regular pillow between knees when in bed On Thursday, the patient may shower if the wound has no drainage present. Wound may be uncovered to shower. Let soap and water run over the wound, pat dry and apply a new dressing. Discharge plan: Discharge to SNF when medically stable Follow-up plan: In [address] [facility] with ALONZO for wound check and at [address] Escamilla with x-rays Ortho will sign off for now. Please call us if any wound of hip issues. VTE Prophylaxis: Other (Plavix, aspirin) Resuscitation Status: CPR: Attempt Resuscitation [place] Benedict PA-C Aug 18, 2016 08:55
--- NOTE | 2016-08-18 08:56 | PCM.DIORTH ---
Ortho Discharge Instruction Date of Service: Aug 18, 2016 Dates of Hospitalization Date of Hospital Admission Aug 13, 2016 at 17:14 Providers Admitting Physician: Martha Dyson DO Primary Care Physician: Marc Barbosa DO Attending Physician: Martha Dyson DO Activity Discharge Activity-General: Balance rest and activity, Elevate & ice extremity , Ice incision 3-5 time/day for 20min Right Lower Extremity: Weight Bearing as tolerated Discharge Assist Device: Front Wheeled Walker Dressing and Incisional Care Discharge Hygiene: May shower (see instructions below), DO NOT soak incision under water (for 2 weeks), NO bathtub, hot tub or whirlpool (for 2 weeks) Additional Instructions Discharge Instructions Weightbearing: Weightbearing as tolerated with walker DVT prophylaxis: Resume Plavix, add aspirin 325 mg once a day 6 weeks Physical therapy for transfers, progressive ambulation, therapeutic exercise. OT for ADL's. Wound care: change dressing every 2 days Regular pillow between knees when in bed On Thursday, the patient may shower if the wound has no drainage present. Wound needs to be dry for 24 hours. Wound may be uncovered to shower. Let soap and water run over the wound, pat dry and apply a new dressing. Follow Up Plan Follow Up Plan Follow-up plan: In 2 weeks at [facility] with ALONZO for wound check and at [address] Escamilla with x-rays Ashley Miller PA-C Aug 18, 2016 08:56
[2016-08-18] MEDS: 0.9% Sodium Chloride 250 ML IV SCH (09:05)
--- NOTE | 2016-08-18 10:03 | NUR ---
Social Work-readiness for discharge: Data:EMR reviewed. Pt is on day 5 of hospitalization for right hip per H&P. Pt is likely medically stable later today or tomorrow. PT continues to recommend SNF placement. SW spoke with Awilda at [facility] who confirms they are ready to accept when medically stable. UR specialist to contact [facility] for authorization. Paperwork and PASRR in the chart. SW will continue to follow. Assessment:Pt who would benefit from SNF. Plan:[facility] has accepted pt when medically stable. UR specialist to contact [facility] for authorization. Paperwork and PASRR in the chart. SW will continue to follow. JOSE J Sunshine
--- NOTE | 2016-08-18 10:13 | NUR ---
JAZMÍN Signed @ [id number]
--- NOTE | 2016-08-18 10:26 | NUR ---
Called Audrey Smith CM at [facility] and let her know patient is ready for d/c and SNF review is needed. Undated [employer] Addendum: 08/18/16 at 1402 by LATOYA BRENNER CM Audrey has approved transfer to [facility] today.
--- NOTE | 2016-08-18 13:16 | PCM.DC.MED ---
Discharge Summary Date of Service Aug 18, 2016 Dates of Hospitalization Date of Hospital Admission Aug 13, 2016 at 17:14 Date of Discharge: Aug 18, 2016 Providers: Admitting Physician: Martha Dyson DO Primary Care Physician: Marc Barbosa DO Attending Physician: Martha Dyson DO Diagnosis at Time of Discharge Diagnosis at Time of Discharge Right hip fracture, status post right hip arthroplasty, CAD status post CA 2, hyperlipidemia, hypertension, pacemaker Consultations Orthopedic surgery, PT/OT Procedures XRay, CTs & MRIs [facility] Diagnostic Imaging Department [place], [place] [id number] Patient Name: MAREK MONTIEL MR#: [id number] Location: [facility] Ordering Phys: Hernandez Escamilla DO Date of Service: 08/15/16 1639 PROCEDURE: X-RAY PELVIS W/LAT HIP (RT) ([id number]) INDICATIONS: post op TECHNIQUE: AP pelvis and lateral view of the right hip acquired. COMPARISON: None. FINDINGS: Bones: Patient is status post right hip arthroplasty, with hardware components in expected positions. The hip joint appears congruent. The visualized bony structures appear intact. Soft tissues: Overlying postoperative changes are noted. No suspicious soft tissue densities. IMPRESSION: Expected postsurgical change for right hip arthroplasty. Dictated by: Didi Tenorio MD, PhD on 08/15/2016 at 17:33 Approved by: Didi Tenorio MD, PhD on 08/15/2016 at 17:34 [facility] Diagnostic Imaging Department [place], [place] [id number] Patient Name: MAREK MONTIEL MR#: [id number] Location: [facility] Ordering Phys: Francine Hernandez Mendez Date of Service: 08/13/16 2116 PROCEDURE: X-RAY RIGHT HIP COMPLETE, MINIMUM TWO VIEWS ([id number]) INDICATIONS: HIP PAIN TECHNIQUE: 2 views of the hip were acquired. COMPARISON: [facility], CR, XR HIP 2VW LT, 01/03/2015, 11:06. FINDINGS: Bones: Subcapital right femoral neck fracture is present with mild superior lateral displacement of the distal fracture component. Soft tissues: No suspicious soft tissue calcifications or masses. Vascular calcifications indicate atherosclerosis. IMPRESSION: Superior laterally displaced right subcapital femoral neck fracture. Dictated by: Gustavo Jeff [facility] Interpreted: Sarah Lowery MD on 08/14/2016 at 9:13 Transcribed by: MAULIK on 08/14/2016 at 9:14 Approved by: Sarah Lowery M.D. on 08/14/2016 at 9:48 Invasive Procedures Right hip arthroplasty on 08/15/[address] Arana Hospital Course HPI: The patient is an 80-year-old gentleman who has dementia and fell down 7-8 flights of concrete steps. The patient was home by himself and does not remember much of what happened. The patient fell down 7-8 concrete steps and then was found by a neighbor who heard him screaming for help. The patient was then brought to the emergency room at [facility] where he was found to have a right intertrochanteric fracture and then transferred here for surgical repair. Patient is a difficult historian due to his dementia some of the history was pieced together by the patient's who discussed what happened with neighbors. Patient currently only complains of right hip pain and denies any chest pain, shortness of breath, nausea, vomiting, diarrhea. Assessment and Plan 80-year-old male with right intratrochanteric fracture after fall Right hip fracture, present on admission -Consult orthopedics (Dr. Aranat): Right hemiarthroplasty performed day before yesterday, today is postop day 2 -Pain control with Dilaudid -- We held all medications except metoprolol and Imdur in the a.m. of surgery -- Called the OR to let Dr. Arana know about Plavix. -- Call the OR and left a message about patient's pacemaker per anesthesiology: Also obtained the type and model of his pacemaker and provided that to OR -- Ordered an echocardiogram: "The left ventricle is normal in size. Left ventricular systolic function is mild to moderately reduced. The ejection fraction is estimated to be 40-45%. LVEF has mildly improved. There is akinesis of the basal and mid inferior. There is severe hypokinesis of the basal inferolateral segment. Assessment of diastolic parameters indicates a relaxation abnormality of the left ventricle, consistent with normal filling pressures.The ascending aorta is at the upper limits of normal in size." -- Tomorrow the patient is postop day #3. -- Patient has not been able to participate in physical therapy to much, expected to go to [facility] for recovery -- Platelets are much improved on 08/17/16, we started patient back on aspirin and Plavix -- On the day of surgery patient is tolerating general diet, cooperating with physical therapy. Anemia due to bleeding secondary to inherent risk involved with orthopedic surgery, acute -- Hemoglobin 7.5 08/16 a.m. -- Patient received 1 unit of PRBC during this admission -- On the day of discharge his H&H are within normal Hypertension (currently controlled) -Continue metoprolol 100 mg twice a day -Continue isosorbide 30 mg daily Hyperlipidemia (currently controlled) -Continue atorvastatin 80 mg daily: Home medications were given Dementia -Continue Namenda: Home medications were given CODE STATUS: Full code POA: Exam Vital Signs (Last) Date Time Temp Pulse Resp B/P Pulse Ox O2 Delivery O2 Flow Rate FiO2 08/18/16 08:10 CPAP/BIPAP 08/18/16 06:26 36.9 78 16 121/71 94 08/16/16 14:11 1.50 Exam Gen.: No acute distress, patient is biting his mouth with a piece of paper HEENT: Normocephalic atraumatic Heart: Regular rate and rhythm no S3-S4 murmurs Lungs: Clear anteriorly or wheezes MSK: He is able to move his his toes Neuro: Follows commands, answers verbally. Oriented to person, 1+ patellar reflex bilaterally Psych: Negative for anxiety Abdomen: Soft, nondistended, normal bowel sounds Vascular: Dorsalis pedis 1+ bilaterally feet are warm to touch Test 08/13/16 19:15 08/14/16 05:20 08/14/16 05:35 08/14/16 18:55 Troponin T < 0.010ug/L (0.0-0.011) Hold Lao Top Tube Received (Received) Urine Color Yellow (YELLOW) Urine Appearance Slightly cloudy Urine pH 5.5 (5.0-8.0) Urine Specific [place] 1.020 (1.003-1.035) Urine Protein Negativemg/dL (NEG,TRACE) Urine Glucose (UA) Negativemg/dL (NEGATIVE) Urine Ketones Negativemg/dL (NEGATIVE) Urine Occult Blood Large (NEGATIVE) Urine Nitrite Negative (NEGATIVE) Urine Bilirubin Negative (NEGATIVE) Urine Urobilinogen Normalmg/dL (NORMAL) Urine Leukocyte Esterase Moderate (NEGATIVE) Urine RBC >50/hpf (0-2) Urine WBC 11-50/hpf (0-5) Urine Epithelial Cells Occasional/hpf (NONE-MOD) Urine Crystals None seen (NONE SEEN) Urine Bacteria Few/hpf (NONE-FEW) Urine Hyaline Casts None/lpf (NONE) Urine Granular Casts None seen (NONE SEEN) Urine Waxy Casts None seen (NONE SEEN) Urine Red Blood Cell Casts None seen (NONE SEEN) Urine White Blood Cell Casts None seen (NONE SEEN) Urine Mucus None seen (None Seen) Urine Trichomonas None seen (NONE SEEN) Urine Yeast None (NONE SEEN) Urinalysis Comment None Urine Culture Reflexed Indicated Hold Urine Received (Received) Prothrombin Time 12.0sec (8.1-12.5) Prothromb Time International Ratio 1.12ratio Total Bilirubin 1.4mg/dL (0.0-1.2) Aspartate Amino Transf (AST/SGOT) 19U/L (0-50) Alanine Aminotransferase (ALT/SGPT) 10U/L (0-44) Alkaline Phosphatase 117U/L (25-160) Total Protein 6.5g/dL (6.4-8.4) Albumin 3.4g/dL (3.4-5.0) Thyroid Stimulating Hormone (TSH) 3.690uIU/mL (0.450-4.500) Hold Purple Top Tube Received (Received) Hold [place] Top Tube Received (Received) Test 08/16/16 17:08 08/17/16 06:00 08/18/16 05:30 Hemoglobin A1c 5.6% (4.8-5.6) Neutrophils (%) (Auto) 66.3% (40-74) Lymphocytes (%) (Auto) 15.2% (14-46) Monocytes (%) (Auto) 14.6% (4-12) Eosinophils (%) (Auto) 3.3% (0-5) Basophils (%) (Auto) 0.3% (0-3) White Blood Count 11.1th/mm3 (3.8-10.1) Red Blood Count 4.21mil/mm3 (4.40-5.80) Hemoglobin 13.4g/dL (13.8-17.2) Hematocrit 39.0% (41.0-50.0) Mean Corpuscular Volume 92.6fL (81-100) Mean Corpuscular Hemoglobin 31.8pg (27.0-35.0) Mean Corpuscular Hemoglobin Concent 34.4% (32.0-37.0) Red Cell Distribution Width 14.9% (12.3-15.4) Platelet Count 148bil/L (150-400) Sodium Level 136mEq/L (134-144) Potassium Level 4.0mEq/L (3.5-5.2) Chloride Level 104mEq/L (97-108) Carbon Dioxide Level 17mmol/L (18-29) Blood Urea Nitrogen 25mg/dL (8-27) Creatinine 1.12mg/dL (0.76-1.27) Estimat Glomerular Filtration Rate 67mL/min (>59) Glucose Level 111mg/dL (60-99) Calcium Level 8.2mg/dL (8.5-10.1) Discharge Medications Discharge Medications Aspirin (Aspirin) 325 Mg Tablet 325 MG PO DAILY Prescribed by: MARCIANO KOROMA DO Atorvastatin Calcium (Atorvastatin Calcium) 80 Mg Tablet 80 MG PO DAILY ( Reported) Clopidogrel (Clopidogrel) 75 Mg Tablet 75 MG PO DAILY (Reported) Docusate Sodium (Colace) 100 Mg Capsule 100 MG PO BID Prescribed by: MARCIANO KOROMA DO Isosorbide MN ER (Isosorbide MN ER) 60 Mg Tab.er.24h 30 MG PO DAILY (Reported) Levothyroxine (Levothyroxine) 50 Mcg Tablet 50 MCG PO DAILY (Reported) Memantine HCl (Namenda-XR) 28 Mg Cap.spr.24 28 MG PO QPM (Reported) Metoprolol Tartrate (Metoprolol Tartrate) 100 Mg Tablet 100 MG PO BID (Reported ) Multivits-Min/FA/Lycopene/Lut (Centrum Silver Tablet) 1 Each Tablet 1 EACH PO DAILY (Reported) Omeprazole (Omeprazole) 20 Mg Capsule.dr 20 MG PO DAILY (Reported) As needed Hydrocodone-Acetaminophen 5-325 mg (Hydrocodone-Acetaminophen 5-325 mg) 1 Each Tablet 1-2 TABLET PO Q4H PRN PRN For Moderate Pain Prescribed by: MARCIANO KOROMA DO Nitroglycerin SL (Nitrostat) 0.4 Mg Tablet 0.4 MG SL Q5MIN PRN PRN For Chest Pain Prescribed by: RUPAL LONDON MD Polyethylene Glycol 3350 (Miralax) 17 Gm Powd.pack 17 GM PO DAILY PRN PRN For Constipation Prescribed by: DO Chris SARKAR Aruna DO Aug 18, 2016 13:16
--- NOTE | 2016-08-18 14:16 | NUR ---
Social Work-discharge: Data:EMR Reviewed. Pt is on day 5 of hospitalization for right hip fracture per H&P. Pt is medically stable for discharge. PT continues to recommend SNF and pt's insurance has authorized SNF placement. SW and UR specialist reviewed the chart and feel pt would qualify for BLS transport. UR specialist arranged this with [facility] at for 1600. SW updated pt and Michelle in the room regarding discharge time. SW explained that SW cannot guarantee that insurance will cover the cost of transport, agreeable to proceed. ENRIQUE faxed orders and created packet. RN,UC,pt/family, and Renuka [place] all updated and agreeable to plan. Assessment:Pt to benefit from SNF placement. Plan:Pt to discharge to [facility] today at 1600 via BLS. [facility] authorization has been obtained. RN,UC,pt/family, and Renuka [place] all updated and agreeable to plan. JOSE J Sunshine
[2016-08-18 15:46] VITALS: BP 118/61; PULSE 70; RESP 18; O2SAT 94
--- NOTE | 2016-08-18 15:47 | NUR ---
RN To RN report report called to Renuka Todd, Renuka Avila RN. questions answered at this time. BLS arrived for transfer to [facility] at 1550hrs.
== END 2016-08-18 15:50 | DRG 470 ==
LOC: OSC 17:14
PROVIDERS: ADMIT Neuromusculoskeletal Medicine & OMM; ATTEND Neuromusculoskeletal Medicine & OMM
PROC: 0SRR01A Replacement of Right Hip Joint, Femoral Surface with Metal Synthetic Substitute, Uncemented, Open Approach (ICD-10-PCS; principal; 2016-08-15 14:45)
PROC: 30233N1 Transfusion of Nonautologous Red Blood Cells into Peripheral Vein, Percutaneous Approach (ICD-10-PCS; 2016-08-16)
DX: S72.141A Displaced intertrochanteric fracture of right femur, initial encounter for closed fracture (principal); D62 Acute posthemorrhagic anemia; W10.8XXA Fall (on) (from) other stairs and steps, initial encounter; Y92.009 Unspecified place in unspecified non-institutional (private) residence as the place of occurrence of the external cause; Z95.1 Presence of aortocoronary bypass graft; E78.5 Hyperlipidemia, unspecified; I10 Essential (primary) hypertension; F03.90 Unspecified dementia, unspecified severity, without behavioral disturbance, psychotic disturbance, mood disturbance, and anxiety; I25.2 Old myocardial infarction; Z95.0 Presence of cardiac pacemaker; D69.59 Other secondary thrombocytopenia